=== PATIENT | male | born 1990 | race Caucasian/White ===

== ENCOUNTER 2017-03-31 17:28 | Emergency (ER) | payer OTHER ==
[2017-03-31 17:33] VITALS: BP 164/108; PULSE 96; TEMP 97.9; BMI 39.5
[2017-03-31] MEDS ORDERED: IBUPROFEN 600 MG TABLET (FP) PO ONE (19:09)
[2017-03-31] MEDS ORDERED: SULFAMETHOXAZOLE/TRIMETHOPRIM 800MG/160MG D.S. TABLET PO ONE (19:21)
[2017-03-31] MEDS ORDERED: CEPHALEXIN MONOHYDRATE 500 MG CAPSULE (UD) PO ONE (19:21)
--- NOTE | 2017-03-31 19:26 | PDOC ---
History of Present Illness - General Chief Complaint: Abscess Boil Stated Complaint: SWOLLEN FACE Time Seen by Provider: 03/31/17 18:44 - History of Present Illness Initial Comments: 03/31/17 18:55 Pt. is a 27 y/o obese male with PMH of abscesses presents to the ED complaining of a "pimple" in his nose. Pt. states that he first noticed the pimple yesterday and it was very small. Overnight it doubled in size. Admits to headaches, numbness of his lip, and pain around the nose. Denies fevers, chills , cough, rhinorrhea, n/v/d. Past History - Past Medical History Allergies/Adverse Reactions: Allergies Allergy/AdvReac Type Severity Reaction Status Date / Time No Known Allergies Allergy Verified 03/31/17 17:29 Home Medications: Ambulatory Orders Oxycodone HCl [Roxicodone -] 10 mg PO Q6H PRN #12 tablet MDD 4 tabs MAX Albuterol Sulfate [Proair Respiclick] 1 - 2 puff IH Q4H PRN 10/22/16 Cephalexin Monohydrate [Keflex -] 500 mg PO Q6H #28 capsule 03/31/17 Sulfamethoxazole/Trimethoprim [Bactrim Ds -] 1 tab PO BID #14 tablet 03/31/17 Oxycodone HCl/Acetaminophen [Percocet 5-325 mg Tablet] 1 tab PO Q6H #20 tablet MDD 4 04/01/17 Asthma: Yes - Immunization History Immunization Up to Date: No - Psycho/Social/Smoking Cessation Hx Anxiety: No Suicidal Ideation: No Smoking History: Current every day smoker Have you smoked in the past 12 months: Yes Number of Cigarettes Smoked Daily: 3 Information on smoking cessation initiated: No 'Breaking Loose' booklet given: 09/30/16 Hx Alcohol Use: No Drug/Substance Use Hx: No Substance Use Type: Marijuana Hx Substance Use Treatment: No *Physical Exam - Vital Signs Last Vital Signs Temp Pulse Resp BP Pulse Ox 97.9 F 96 H 18 164/108 98 03/31/17 17:30 03/31/17 17:30 03/31/17 17:30 03/31/17 17:30 03/31/17 17:30 - Physical Exam General Appearance: Yes: Nourished, Appropriately Dressed. No: Apparent Distress HEENT: positive: EOMI, ASHLEIGH, Normal Voice, TMs Normal, Pharynx Normal, Other ( 3cm cellultic area in his R nare on the septum. No fluctuant mass is felt. Nare is partially occluded). negative: Nasal Congestion, Rhinorrhea Neck: positive: Trachea midline, Normal Thyroid, Supple. negative: Tender, Lymphadenopathy (R), Lymphadenopathy (L) Respiratory/Chest: positive: Lungs Clear, Normal Breath Sounds. negative: Respiratory Distress, Accessory Muscle Use, Rales, Rhonchi, Wheezing Cardiovascular: positive: Regular Rhythm, Regular Rate Procedures - Incision and Drainage I&D Site: Right: Other (nare/nasal septum) Betadine cleansed: Yes Blade Size: (Stab incision with 18g needle) Attempts: 2 (Scant drainage, no fluctuant mass to enter with needle. Wound culture taken) Medical Decision Making - Medical Decision Making 03/31/17 19:45 Pt. is a 26 y/o male who presents with a cellulitic area in his right dunn. Area was cleaned with Betadine and an 18-gauge needle was used to open the area to see if there would be any drainage. There is scant drainage and a wound culture is taken at this time. Numbness of his lips most likely due to the location of the cellulitic area. Most likely pressing on the second branch of the trigeminal nerve. Patient is afebrile at this time. We will discharge home with Keflex and Bactrim. Patient is given strict return instructions to return if the area increases in size, or if he develops fevers chills, or headaches. Patient understands discharge instructions and all questions are answered at this time. Before discharge papers were given, patient eloped from the ER stating he had to go to work. *DC/Admit/Observation/Transfer Diagnosis at time of Disposition: Cellulitis Qualifiers: Site of cellulitis: face Qualified Code(s): L03.211 - Cellulitis of face - Discharge Dispostion Disposition: HOME Condition at time of disposition: Improved Admit: No - Prescriptions Prescriptions: Sulfamethoxazole/Trimethoprim [Bactrim Ds -] 1 tab PO BID #14 tablet Cephalexin Monohydrate [Keflex -] 500 mg PO Q6H #28 capsule - Referrals Referrals: Obinna Mancini MD [Primary Care Provider] - Blaine Jackson MD [Staff Physician] - - Patient Instructions Printed Discharge Instructions: DI for Skin Abscess, DI for Cellulitis -- Adult Additional Instructions: You have an abscess in your right nare. We took a culture today of the abscess. You need to make an appointment with an ENT doctor Monday; you have a referral for Dr. Jackson. Use warm water soaks help the abscess come to the surface and drain. You were prescribed two antibiotics. Follow the dosing instructions and take the entire prescription even if you are feeling better. If you experience worsening headaches, facial pain especially over the eye, fevers, chills, sweats, increase in size of the abscess, return to the ED immediately.
== END 2017-03-31 19:37 | disposition home or self-care (01) ==
LOC: JERFT 17:28
PROC: 099M0ZZ Drainage of Nasal Septum, Open Approach (ICD-10-PCS; principal; 2017-03-31)
DX: J34.0 Abscess, furuncle and carbuncle of nose (principal); F17.210 Nicotine dependence, cigarettes, uncomplicated; J45.909 Unspecified asthma, uncomplicated
CPT/HCPCS: 30020; 87070; 87186; 87205; 99281-25

== ENCOUNTER 2017-04-01 15:55 | Emergency (ER) | payer OTHER ==
[2017-04-01 16:07] VITALS: BP 146/76; PULSE 100; TEMP 99.3; BMI 48.6
--- NOTE | 2017-04-01 17:25 | PDOC ---
History of Present Illness - General Chief Complaint: Pain Stated Complaint: REVISIT Time Seen by Provider: 04/01/17 17:21 - History of Present Illness Initial Comments: 04/01/17 17:36 Pt. is a 27 y/o obese male with PMH of abscesses presents to the ED complaining of a "pimple" in his nose.Patient was seen yesterday in the ER for the same issue. He returns today with increasing pain and concern that the area is worsening. He would like reevaluation. Patient states that he is currently taking his antibiotics as prescribed. Patient believes that the cellulitic area has gotten larger.. Admits to headaches, numbness of his lip, and pain around the nose. Denies fevers, chills, cough, rhinorrhea, n/v/d. Past History - Past Medical History Allergies/Adverse Reactions: Allergies Allergy/AdvReac Type Severity Reaction Status Date / Time No Known Allergies Allergy Verified 04/01/17 16:06 Home Medications: Ambulatory Orders Oxycodone HCl [Roxicodone -] 10 mg PO Q6H PRN #12 tablet MDD 4 tabs MAX Albuterol Sulfate [Proair Respiclick] 1 - 2 puff IH Q4H PRN 10/22/16 Cephalexin Monohydrate [Keflex -] 500 mg PO Q6H #28 capsule 03/31/17 Sulfamethoxazole/Trimethoprim [Bactrim Ds -] 1 tab PO BID #14 tablet 03/31/17 Oxycodone HCl/Acetaminophen [Percocet 5-325 mg Tablet] 1 tab PO Q6H #20 tablet MDD 4 04/01/17 Asthma: Yes - Immunization History Immunization Up to Date: No - Psycho/Social/Smoking Cessation Hx Anxiety: No Suicidal Ideation: No Smoking History: Current every day smoker Have you smoked in the past 12 months: Yes Number of Cigarettes Smoked Daily: 5 Information on smoking cessation initiated: No 'Breaking Loose' booklet given: 09/30/16 Hx Alcohol Use: No Drug/Substance Use Hx: No Substance Use Type: None Hx Substance Use Treatment: No *Physical Exam - Vital Signs Last Vital Signs Temp Pulse Resp BP Pulse Ox 99.3 F 100 H 20 146/76 97 04/01/17 16:03 04/01/17 16:03 04/01/17 16:03 04/01/17 16:03 04/01/17 16:03 - Physical Exam General Appearance: Yes: Nourished, Appropriately Dressed, Obese. No: Apparent Distress HEENT: positive: EOMI, ASHLEIGH, Normal Voice, TMs Normal, Pharynx Normal, Other ( 3.5cm cellultic area in his R nare on the septum. The area now includes a .5cm length inferior to the R nostril. No fluctuant mass is felt. Nare is partially occluded). negative: Nasal Congestion, Rhinorrhea, Sinus Tenderness Neck: positive: Trachea midline, Normal Thyroid, Supple. negative: Lymphadenopathy (R), Lymphadenopathy (L) Integumentary: positive: Normal Color, Dry, Warm, Swelling (R nare) Neurologic: positive: healthcare financial analyst II-XII NML intact, Fully Oriented, Alert, Normal Mood/ Affect, Normal Response, Motor Strength 5/5 Medical Decision Making - Medical Decision Making 04/01/17 18:03 Patient is 26-year-old male presenting with a cellulitic area to his right Wilkes / septum. The area has remained relatively unchanged since yesterday's exam. Slowly enlarging of the area. Patient states he is taking antibiotics however he has not been compliant with the warm water soaks. Explained the importance of the warm water soaks and told him to soak the area at least once per hour. Patient is nervous that his lip is numb' explained to him again that the trigeminal nerve is most likely being compressed by the cellulitic area. Pt. remains afebrile. Will give toradol for pain and discharge home with percocet 5/ 325 #20. He is to follow-up with ENT on Monday. Again given strict return protocol. Understands that if he has increased swelling of the area, fevers, chills, worsening headaches to return to the ED. In discharge instructions and all questions were answered at this time. *DC/Admit/Observation/Transfer Diagnosis at time of Disposition: Cellulitis Qualifiers: Site of cellulitis: face Qualified Code(s): L03.211 - Cellulitis of face - Discharge Dispostion Disposition: HOME Condition at time of disposition: Improved Admit: No - Prescriptions Prescriptions: Oxycodone HCl/Acetaminophen [Percocet 5-325 mg Tablet] 1 tab PO Q6H #20 tablet MDD 4 - Referrals Referrals: Blaine Jackson MD [Staff Physician] - - Patient Instructions Printed Discharge Instructions: DI for Cellulitis -- Adult Additional Instructions: You have cellulitis in your right nare. We took a culture yesterday of the cellulitis. You need to make an appointment with an ENT doctor Monday; you have a referral for Dr. Jackson. Use warm water soaks at least once an hour help the abscess come to the surface and drain. You were prescribed two antibiotics. Follow the dosing instructions and take the entire prescription even if you are feeling better. If you experience worsening headaches, facial pain especially over the eye, fevers, chills, sweats, increase in size of the abscess, return to the ED immediately.
[2017-04-01] MEDS ORDERED: KETOROLAC TROMETHAMINE 60 MG/2 ML VIAL IM ONE (17:33)
[2017-04-01] MEDS ORDERED: KETOROLAC TROMETHAMINE 60 MG/2 ML VIAL ONE (17:34)
== END 2017-04-01 18:07 | disposition home or self-care (01) ==
LOC: JERFT 15:55
DX: J34.0 Abscess, furuncle and carbuncle of nose (principal); F17.210 Nicotine dependence, cigarettes, uncomplicated; J45.909 Unspecified asthma, uncomplicated
CPT/HCPCS: 99281-25

== ENCOUNTER 2017-08-04 13:14 | Emergency (ER) | payer OTHER ==
[2017-08-04 13:18] VITALS: BMI 51.7
--- NOTE | 2017-08-04 13:31 | PDOC ---
History of Present Illness - General Chief Complaint: Abscess Boil Stated Complaint: BOIL Time Seen by Provider: 08/04/17 13:30 - History of Present Illness Initial Comments: 08/04/17 13:31 Mr. James is a 27 yo male with a significant past medical history of prior drained abscess positive for MRSA who presents to the emergency department with a 3 day history of painful abscess to his R buttock. He says that he has had some subjective fever and chills lately and could not sleep last night due to the pain. He reports his pain is more or less constant and caused by any movement. The patient denies chest pain, shortness of breath, headache and dizziness. Denies nausea, vomit, diarrhea and constipation. Denies dysuria, frequency, urgency and hematuria. Allergies: NKDA Past surgical history: Prior I&D Past History - Past Medical History Allergies/Adverse Reactions: Allergies Allergy/AdvReac Type Severity Reaction Status Date / Time No Known Allergies Allergy Verified 08/04/17 13:18 Home Medications: Ambulatory Orders Albuterol Sulfate [Proair Respiclick] 1 - 2 puff IH Q4H PRN 10/22/16 Cephalexin [Keflex] 500 mg PO BID #14 capsule 08/04/17 Asthma: Yes Other medical history: OBESITY - Immunization History Immunization Up to Date: No - Psycho/Social/Smoking Cessation Hx Anxiety: No Suicidal Ideation: No Smoking History: Current every day smoker Have you smoked in the past 12 months: Yes Number of Cigarettes Smoked Daily: 20 Information on smoking cessation initiated: Yes 'Breaking Loose' booklet given: 08/04/17 Hx Alcohol Use: No Drug/Substance Use Hx: No Substance Use Type: None Hx Substance Use Treatment: No Review of Systems - Review of Systems Comments:: 08/04/17 13:31 GENERAL/CONSTITUTIONAL: No fever or chills. No weakness. HEAD, EYES, EARS, NOSE AND THROAT: No change in vision. No ear pain or discharge. No sore throat. CARDIOVASCULAR: No chest pain or shortness of breath RESPIRATORY: No cough, wheezing, or hemoptysis. GASTROINTESTINAL: No nausea, vomiting, diarrhea or constipation. GENITOURINARY: No dysuria, frequency, or change in urination. MUSCULOSKELETAL: +Intense pain reported at abscess site to R buttock. No joint or muscle swelling or pain. No neck or back pain. SKIN: No rash NEUROLOGIC: No headache, vertigo, loss of consciousness, or change in strength/ sensation. ENDOCRINE: No increased thirst. No abnormal weight change HEMATOLOGIC/LYMPHATIC: No anemia, easy bleeding, or history of blood clots. ALLERGIC/IMMUNOLOGIC: No hives or skin allergy. *Physical Exam - Vital Signs Last Vital Signs Temp Pulse Resp BP Pulse Ox 99 F 131 H 19 158/86 98 08/04/17 13:16 08/04/17 13:16 08/04/17 13:16 08/04/17 13:16 08/04/17 13:16 - Physical Exam Comments: 08/04/17 13:31 GENERAL: +Acutely in pain. Awake, alert, and fully oriented. HEAD: No signs of trauma, normocephalic, atraumatic EYES: PERRLA, EOMI, sclera anicteric, conjunctiva clear ENT: Auricles normal inspection, hearing grossly normal, nares patent, oropharynx clear without exudates. Moist mucosa NECK: Normal ROM, supple, no lymphadenopathy, JVD, or masses LUNGS: No distress, speaks full sentences, clear to auscultation bilaterally HEART: Regular rate and rhythm, normal S1 and S2, no murmurs, rubs or gallops, peripheral pulses normal and equal bilaterally. ABDOMEN: Soft, nontender, normoactive bowel sounds. No guarding, no rebound. No masses EXTREMITIES: +Cellulitic, warm, red, angry area noted at site of prior abscess drainage on Left side of Right buttock. Non-fluctuant at this time. Non- draining. NEUROLOGICAL: Cranial nerves II through XII grossly intact. Normal speech, normal gait, no focal sensorimotor deficits SKIN: Warm, Dry, normal turgor, no rashes or lesions noted. Medical Decision Making - Medical Decision Making 08/04/17 14:09 Patient presents with angry red cellulitic spot on R buttock. Non-fluctuant and non-draining, warm at site. Does not appear drainable at this time. Patient instructed to follow-up in 48 hours as well as given keflex prescription. Will D /C to home care. *DC/Admit/Observation/Transfer Diagnosis at time of Disposition: Cellulitis Qualifiers: Site of cellulitis: buttock Qualified Code(s): L03.317 - Cellulitis of buttock - Discharge Dispostion Disposition: HOME - Prescriptions Prescriptions: Cephalexin [Keflex] 500 mg PO BID #14 capsule - Patient Instructions Printed Discharge Instructions: DI for Cellulitis -- Adult Additional Instructions: Come back in 48 hours for further evaluation.
[2017-08-04 13:34] VITALS: TEMP 98.6
[2017-08-04] MEDS ORDERED: CEPHALEXIN MONOHYDRATE 500 MG CAPSULE (UD) PO ONE (14:06)
--- NOTE | 2017-08-04 14:07 | PDOC ---
Attending Attestation - Resident Resident Name: Scott Sweeney - ED Attending Attestation I have performed the following: I have examined & evaluated the patient, The case was reviewed & discussed with the resident, I agree w/resident's findings & plan, Exceptions are as noted - HPI HPI: 08/04/17 14:06 27 M with no PMH presents to ER with pain to R buttock x 3 days. Pt states that he has had recurrent abscesses in the same location. Pt denies F/C. Denies drainage from his buttock. Denies pain with defecation. - Physicial Exam PE: 08/04/17 14:13 "GENERAL: Awake, alert, and fully oriented, in no acute distress HEAD: No signs of trauma EYES: PERRLA, EOMI, sclera anicteric, conjunctiva clear ENT: Auricles normal inspection, hearing grossly normal, nares patent, oropharynx clear without exudates. Moist mucosa NECK: Normal ROM, supple, no lymphadenopathy, JVD, or masses LUNGS: Breath sounds equal, clear to auscultation bilaterally. No wheezes, and no crackles HEART: Regular rate and rhythm, normal S1 and S2, no murmurs, rubs or gallops ABDOMEN: Soft, nontender, normoactive bowel sounds. No guarding, no rebound. No masses EXTREMITIES: Normal range of motion, no edema. No clubbing or cyanosis. No cords, erythema, or tenderness NEUROLOGICAL: Cranial nerves II through XII grossly intact. Normal speech, normal gait SKIN: 5cm area of erythema and induration on R buttock, NO fluctuance or drainage, no extention of erythema to anus RECTAL: no anal fissures, no pain on JEANE - Medical Decision Making 08/04/17 14:15 27 M with cellulitis of R buttock. No evidence of abscess on exam at this time. No evidence of perianal extension, no anal fissures or tenderness in rectum to suggest fistula or perirectal abscess. Pt with stable vitals. - Keflex for empiric tx of cellulitis - Wound check in 48 hours
[2017-08-04] MEDS ORDERED: CEPHALEXIN MONOHYDRATE 250 MG CAPSULE (FP) ONE (14:08)
[2017-08-04 14:25] VITALS: BP 131/74; PULSE 95
== END 2017-08-04 14:41 | disposition home or self-care (01) ==
LOC: JER 13:14
DX: L03.317 Cellulitis of buttock (principal); J45.909 Unspecified asthma, uncomplicated; E66.9 Obesity, unspecified; Z68.43 Body mass index [BMI] 50.0-59.9, adult; Z86.14 Personal history of Methicillin resistant Staphylococcus aureus infection
CPT/HCPCS: 99282-25

== ENCOUNTER 2017-08-05 20:45 | Emergency (ER) | payer OTHER ==
[2017-08-05 20:57] VITALS: BMI 51.7
[2017-08-05] MEDS ORDERED: SODIUM CHLORIDE 1,000 ML IV STA (22:00)
[2017-08-05] MEDS ORDERED: morphine CARPU-JECT 4 MG/1 ML DISP.SYRIN IVPUSH ONE (22:00)
--- NOTE | 2017-08-05 22:00 | PDOC ---
History of Present Illness - General Chief Complaint: Abscess Boil Stated Complaint: ABCESS Time Seen by Provider: 08/05/17 21:58 - History of Present Illness Initial Comments: 08/05/17 21:59 Mr. James is a 27 yo male with a significant past medical history of DM and abscess positive for MRSA who re-presents to the emergency department for evaluation of painful abscess to R buttock. He says that his pain has increased from his previous visit, causing him to come back earlier than initially proscribed. Previously he had described subjective fever and chills. He also describes today while sitting he felt a warm sensation and fluid at his abscess site. The patient denies chest pain, shortness of breath, headache and dizziness. Denies fever, chills, nausea, vomit, diarrhea and constipation. Denies dysuria, frequency, urgency and hematuria. Allergies: NKDA Past surgical history: Prior I&D Past History - Past Medical History Allergies/Adverse Reactions: Allergies Allergy/AdvReac Type Severity Reaction Status Date / Time No Known Allergies Allergy Verified 08/05/17 20:57 Home Medications: Ambulatory Orders Oxycodone HCl/Acetaminophen [Percocet 5-325 mg Tablet] 1 tab PO Q6H #20 tablet MDD 4 tabs 08/06/17 Sulfamethoxazole/Trimethoprim [Bactrim Ds -] 1 tab PO BID #20 tablet 08/06/17 Asthma: Yes - Immunization History Immunization Up to Date: No - Psycho/Social/Smoking Cessation Hx Anxiety: No Suicidal Ideation: No Smoking History: Current every day smoker Have you smoked in the past 12 months: Yes Number of Cigarettes Smoked Daily: 20 Information on smoking cessation initiated: No 'Breaking Loose' booklet given: 08/04/17 Hx Alcohol Use: No Drug/Substance Use Hx: No Substance Use Type: None Hx Substance Use Treatment: No Review of Systems - Review of Systems Comments:: 08/05/17 21:59 GENERAL/CONSTITUTIONAL: No current fever or chills. No weakness. HEAD, EYES, EARS, NOSE AND THROAT: No change in vision. No ear pain or discharge. No sore throat. CARDIOVASCULAR: No chest pain or shortness of breath RESPIRATORY: No cough, wheezing, or hemoptysis. GASTROINTESTINAL: +Pain to R buttock at abscess site. Also increased warmth earlier today. GENITOURINARY: No dysuria, frequency, or change in urination. MUSCULOSKELETAL: No joint or muscle swelling or pain. No neck or back pain. SKIN: No rash NEUROLOGIC: No headache, vertigo, loss of consciousness, or change in strength/ sensation. ENDOCRINE: No increased thirst. No abnormal weight change HEMATOLOGIC/LYMPHATIC: No anemia, easy bleeding, or history of blood clots. ALLERGIC/IMMUNOLOGIC: No hives or skin allergy. *Physical Exam - Vital Signs Last Vital Signs Temp Pulse Resp BP Pulse Ox 98.8 F 127 H 20 148/69 10 L 08/05/17 20:55 08/05/17 20:55 08/05/17 20:55 08/05/17 20:55 08/05/17 20:55 - Physical Exam Comments: 08/05/17 21:59 GENERAL: Awake, alert, and fully oriented, in no acute distress HEAD: No signs of trauma, normocephalic, atraumatic EYES: PERRLA, EOMI, sclera anicteric, conjunctiva clear ENT: Auricles normal inspection, hearing grossly normal, nares patent, oropharynx clear without exudates. Moist mucosa NECK: Normal ROM, supple, no lymphadenopathy, JVD, or masses LUNGS: No distress, speaks full sentences, clear to auscultation bilaterally HEART: Regular rate and rhythm, normal S1 and S2, no murmurs, rubs or gallops, peripheral pulses normal and equal bilaterally. ABDOMEN: Soft, nontender, normoactive bowel sounds. No guarding, no rebound. No masses EXTREMITIES: Normal inspection, Normal range of motion, no edema. No clubbing or cyanosis. NEUROLOGICAL: Cranial nerves II through XII grossly intact. Normal speech, normal gait, no focal sensorimotor deficits SKIN: +Medial R buttock abscess spontaneously draining purulent fluid intermixed with blood. Warm to the touch and painful to palpation. ED Treatment Course - LABORATORY CBC & Chemistry Diagram: 08/05/17 23:15 08/05/17 23:15 Medical Decision Making - Medical Decision Making 08/06/17 03:41 Wound and blood cultures sent for evaluation - patient would like to go home and follow-up in 2 for further evaluation. Patient currently stable with pain well controlled; abscess draining spontaneously. Discharging to home on bactrim with instructions to return in 48 hours. *DC/Admit/Observation/Transfer Diagnosis at time of Disposition: Cellulitis Qualifiers: Site of cellulitis: buttock Qualified Code(s): L03.317 - Cellulitis of buttock - Discharge Dispostion Disposition: HOME - Patient Instructions Printed Discharge Instructions: DI for Anal Abscess Additional Instructions: Please return as discussed in 48 hours for further evaluation.
[2017-08-05] MEDS ORDERED: ONDANSETRON 4 MG/2 ML VIAL IVPB ONE (22:01)
[2017-08-05] MEDS ORDERED: morphine CARPU-JECT 4 MG/1 ML DISP.SYRIN ONE (22:55)
[2017-08-05] MEDS ORDERED: ONDANSETRON 4 MG/2 ML VIAL ONE (22:55)
[2017-08-05] MEDS ORDERED: VANCOMYCIN 1 GRAM (PRE-DOCKED) 500 ML IVPB ONE (22:56)
[2017-08-05 23:27] LABS: BASOPHIL 0.4 % (0-2.0); EOSINOPHIL 0.8 % (0-4.5); MCH 28.2 pg (25.7-33.7); MCHC 33.7 g/dl (32.0-35.9); MEAN CELL VOLUME 83.8 fl (80-96); MEAN PLT VOLUME 10.1 fl (7.5-11.1); NEUTROPHILS 76.3 % (42.8-82.8); PLATELET COUNT 227 K/MM3 (134-434); RDW 12.9 % (11.9-15.9); WHITE BLOOD COUNT 18.4 K/mm3 (4.0-10.0)
[2017-08-06 00:01] LABS: ALBUMIN 3.6 g/dl (3.4-5.0); ANION GAP 6 (8-16); BILIRUBIN,TOTAL 0.4 mg/dL (0.2-1.0); CALCIUM 8.7 mg/dL (8.5-10.1); CO2 28 mmol/L (21-32); CREATININE 0.8 mg/dL (0.7-1.3); GLUCOSE,RANDOM 124 mg/dL (74-106); SGOT/AST 29 U/L (15-37); SGPT/ALT 78 U/L (12-78)
[2017-08-06 00:02] LABS: ALK PHOS 106 U/L (45-117); TOT PROT 7.1 g/dl (6.4-8.2)
[2017-08-06] MEDS ORDERED: VANCOMYCIN 1 GRAM (PRE-DOCKED) 1,000 MG/250 ML BAG IVPB ONE ×2 (00:06→00:08)
--- NOTE | 2017-08-06 03:12 | PDOC ---
Attending Attestation - Resident Resident Name: Scott Sweeney - ED Attending Attestation I have performed the following: I have examined & evaluated the patient, The case was reviewed & discussed with the resident, I agree w/resident's findings & plan, Exceptions are as noted - HPI HPI: 08/06/17 03:07 27 M with abscess on buttock, seen here 2 days ago with cellulitis and started on Keflex, returning today with worsening pain. Pt denies F/C. States that he felt the abscess drain spontaneously. Chart review shows that pt has h/o MRSA. - Physicial Exam PE: 08/06/17 03:11 "GENERAL: Awake, alert, and fully oriented, in no acute distress HEAD: No signs of trauma EYES: PERRLA, EOMI, sclera anicteric, conjunctiva clear ENT: Auricles normal inspection, hearing grossly normal, nares patent, oropharynx clear without exudates. Moist mucosa NECK: Normal ROM, supple, no lymphadenopathy, JVD, or masses LUNGS: Breath sounds equal, clear to auscultation bilaterally. No wheezes, and no crackles HEART: Regular rate and rhythm, normal S1 and S2, no murmurs, rubs or gallops ABDOMEN: Soft, nontender, normoactive bowel sounds. No guarding, no rebound. No masses EXTREMITIES: Normal range of motion, no edema. No clubbing or cyanosis. No cords, erythema, or tenderness NEUROLOGICAL: Cranial nerves II through XII grossly intact. Normal speech, normal gait SKIN: Spontaneously draining abscess on R buttock, fluctuant. Warm, Dry, normal turgor, no rashes or lesions noted. " - Medical Decision Making 08/06/17 04:43 27 M with R buttock abscess. Pt failed outpt keflex. However, given h/o MRSA, pt 's infection is likely resistant. CTAP was obtained to r/o perirectal abscess. Pt given 1 dose of IV vancomycin. CTAP shows likely perianal abscess. Now draining spontaneously. Discussed with pt option for inpatient admission and IV abx. Pt requesting to go home at this time, as he feels well and does not wish to stay. Pain is well controlled. Pt to be started on Bactrim for presumed MRSA infection. Instructed to return to ER in 2 days for wound check.
[2017-08-06] MEDS ORDERED: SULFAMETHOXAZOLE/TRIMETHOPRIM 800MG/160MG D.S. TABLET PO ONE (03:41)
[2017-08-06 04:27] VITALS: BP 121/65; PULSE 96; TEMP 98.1
[2017-08-06] MEDS ORDERED: VANCOMYCIN 2,000 MG in DEXTROSE 5%-WATER - 500 ML IVPB ONE (22:35)
--- NOTE | 2017-08-09 09:00 | PDOC ---
Patient Follow-up (Call Back) - Post ED Follow - Up Disposition at time of original discharge: HOME Reason for Call Back: Abnwl. Microbiology (Patient with positive wound culture for Escherichia coli , #2 and strep agalac group B also susceptible to Bactrim and Keflex to which patient has been on. Appropriate treatment. Patient is following up with surgeon.)
== END 2017-08-06 04:27 | disposition home or self-care (01) ==
LOC: JERFT 20:45 → JER 20:45
DX: L03.317 Cellulitis of buttock (principal)
CPT/HCPCS: 36415; 74177-TC; 80053; 85025; 87040; 87070; 87186; 87205; 99282-25